=== PATIENT | female | born 1960 | race Caucasian/White ===

== ENCOUNTER 2022-08-12 07:00 | Inpatient (IN) | payer OTHER ==
[~2022-08-12] VITALS: Ht 162.6 cm; Wt 90.7 kg
[2022-08-12] VITALS (13 sets, daily range): BP systolic 119–162; BP diastolic 68–103
[2022-08-12] MEDS ORDERED: methylPREDNISolone SOD SUCC 125 MG/2ML VIAL ONE (07:05)
[2022-08-12] MEDS ORDERED: IPRATROPIUM NEB FS 0.5 MG/2.5 ML AMPUL.NEB ONE (07:12)
[2022-08-12] MEDS ORDERED: ALBUTEROL FS 2.5 MG/3 ML VIAL.NEB ONE (07:12)
[2022-08-12 07:27] LABS: BASOPHILS % (AUTO) 0.2 % (0.0-2.0); EOSINOPHILS % (AUTO) 0.3 % (0.0-6.0); HEMATOCRIT 43 % (33-45); HEMOGLOBIN 13.8 g/dL (11.5-14.8); LYMPHOCYTES # (AUTO) 4.4 K/uL (0.8-4.8); LYMPHOCYTES % (AUTO) 18.6 % (20.0-44.0); MEAN CORPUSCULAR HGB CONC 32 g/dl (31.0-36.0); MEAN CORPUSCULAR VOLUME 80 fL (82-100); MONOCYTES # (AUTO) 2.1 K/uL (0.1-1.30); NEUTROPHILS % (AUTO) 71.9 % (43.0-81.0); PLATELET COUNT (AUTO) 413 K/uL (150-450); RED BLOOD CELL COUNT(AUTO) 5.41 MIL/uL (4.0-5.2); WHITE BLOOD COUNT (AUTO) 23.6 K/uL (4.3-11.0)
[2022-08-12] MEDS ORDERED: IPRATROPIUM NEB FS 0.5 MG/2.5 ML AMPUL.NEB NEB ONE (07:30)
[2022-08-12] MEDS ORDERED: methylPREDNISolone SOD SUCC 125 MG/2ML VIAL IV ONE (07:30)
[2022-08-12] MEDS ORDERED: ALBUTEROL FS 2.5 MG/3 ML VIAL.NEB CONTNEB ONE (07:30)
[2022-08-12] MEDS ORDERED: NITROGLYCERIN 0.4 MG/TAB BOTTLE ONE (07:33)
[2022-08-12] MEDS ORDERED: CEFTRIAXONE 1GM BAG (ER ONLY) 50 ML IV ONE (07:42)
[2022-08-12 07:56] LABS: ALANINE AMINOTRANSFERASE 40 U/L (12-78); ALBUMIN 3.9 g/dL (3.4-5.0); ALKALINE PHOSPHATASE 212 U/L (46-116); ASPARTATE AMINOTRANSFERASE 25 U/L (15-37); BILIRUBIN,DIRECT 0.1 mg/dL (0.0-0.2); BILIRUBIN,TOTAL 0.4 mg/dL (0.2-1.0); CALCIUM, SERUM 9.7 mg/dL (8.5-10.1); CARBON DIOXIDE 27 mmol/L (21-32); CHLORIDE 101 mmol/L (98-107); CREATININE 0.9 mg/dL (0.6-1.3); GLUCOSE 193 mg/dL (74-106); POTASSIUM 3.8 mmol/L (3.5-5.1); SODIUM SERUM 139 mmol/L (136-145); TOTAL PROTEIN, SERUM 8.2 g/dL (6.4-8.2); UREA NITROGEN, BLOOD 20 mg/dL (7-18)
[2022-08-12] MEDS ORDERED: CEFTRIAXONE 1 G in IV D5W 50 ML IV ONE (08:00)
[2022-08-12] MEDS ORDERED: NITROGLYCERIN 0.4 MG/TAB BOTTLE SL ONE (08:00)
[2022-08-12] MEDS ORDERED: FUROSEMIDE 40 MG/4 ML VIAL ONE (08:18)
[2022-08-12] MEDS ORDERED: FUROSEMIDE 40 MG/4 ML VIAL IV ONE (08:30)
[2022-08-12] MEDS ORDERED: ACETAMINOPHEN 325 MG TABLET PO PRN (10:00)
[2022-08-12] MEDS ORDERED: CEFTRIAXONE 1 G in IV D5W 50 ML IV SCH (10:00)
[2022-08-12] MEDS ORDERED: ONDANSETRON HCL/PF 4 MG/2 ML VIAL IVP PRN (10:00)
[2022-08-12] MEDS: PANTOPRAZOLE 40 MG VIAL IV SCH (10:54)
[2022-08-12] MEDS: ENOXAPARIN SODIUM 40 MG/0.4 ML DISP.SYRIN SQ SCH (10:56)
[2022-08-12] MEDS: AZITHROMYCIN 500 MG in IV D5W 250 ML IV SCH (11:15)
[2022-08-12] MEDS ORDERED: dexaMETHasone SOD PHOSPHATE 10 MG/ML VIAL IV SCH (12:00)
[2022-08-12] MEDS ORDERED: ASPI-1420 PO (12:10)
[2022-08-12] MEDS ORDERED: LIDO1ADH82 TP (12:10)
[2022-08-12] MEDS ORDERED: HYDR2TAB7 PO (12:10)
[2022-08-12] MEDS ORDERED: BUME1TAB8 PO (12:10)
[2022-08-12] MEDS ORDERED: TIZA2CAP PO (12:10)
[2022-08-12] MEDS ORDERED: ATOR40TA PO (12:10)
[2022-08-12] MEDS ORDERED: TIOT18CA3 IH (12:10)
[2022-08-12] MEDS ORDERED: PREG-57 PO (12:10)
[2022-08-12] MEDS ORDERED: AMLO-213 PO (12:10)
[2022-08-12] MEDS ORDERED: MIRT7.5T10 PO (12:10)
[2022-08-12] MEDS ORDERED: MULT-447 PO (12:10)
[2022-08-12] MEDS ORDERED: VENL37.510 PO (12:10)
[2022-08-12] MEDS ORDERED: ASCO500T22 PO (12:10)
[2022-08-12] MEDS ORDERED: LACT1CAP69 PO (12:10)
[2022-08-12] MEDS ORDERED: ACET-2605 PO (12:10)
[2022-08-12] MEDS ORDERED: ESCI5TAB PO (12:10)
[2022-08-12] MEDS ORDERED: METO25TA20 PO (12:10)
[2022-08-12] MEDS ORDERED: SENN-261 PO (12:10)
[2022-08-12] MEDS ORDERED: ALBU2.5V38 IH (12:10)
[2022-08-12] MEDS: IPRATROPIUM NEB FS 0.5 MG/2.5 ML AMPUL.NEB NEB SCH ×4 (13:04→23:15)
[2022-08-12] MEDS: ALBUTEROL HALF STRENGTH 1.25 MG/3 ML VIAL.NEB NEB SCH ×4 (13:04→23:15)
[2022-08-12] MEDS ORDERED: methylPREDNISolone SOD SUCC 125 MG/2ML VIAL IV SCH (14:30)
[2022-08-12 15:26] LABS: BILIRUBIN,URINE NEGATIVE (NEGATIVE); COLOR,URINE YELLOW (YELLOW); LEUKOCYTE ESTERASE ,URINE NEGATIVE (NEGATIVE); NITRITE, URINE NEGATIVE (NEGATIVE); PH,URINE 5.5 (5.0-8.0); PROTEIN,URINE NEGATIVE (NEGATIVE); UGLUCOSE NEGATIVE (NEGATIVE); UROBILINOGEN,URINE 0.2 EU/dL (0.2)
[2022-08-12] MEDS: PREGABALIN 25 MG CAPSULE PO SCH (19:02)
[2022-08-12] MEDS: TIZANIDINE HCL 4 MG TABLET PO SCH (19:02)
[2022-08-12] MEDS: CELECOXIB 100 MG CAPSULE PO SCH (19:02)
[2022-08-12] MEDS: dexaMETHasone SOD PHOSPHATE 10 MG/ML VIAL IV SCH (20:33)
[2022-08-13] VITALS (25 sets, daily range): BP systolic 96–188; BP diastolic 57–126
[2022-08-13] MEDS: hydrALAZINE HCL IV 20 MG VIAL IV PRN (01:48)
[2022-08-13] MEDS: IPRATROPIUM NEB FS 0.5 MG/2.5 ML AMPUL.NEB NEB SCH ×6 (03:31→23:59)
[2022-08-13] MEDS: ALBUTEROL HALF STRENGTH 1.25 MG/3 ML VIAL.NEB NEB SCH ×6 (03:31→23:58)
[2022-08-13] MEDS: dexaMETHasone SOD PHOSPHATE 10 MG/ML VIAL IV SCH ×3 (03:50→20:08)
[2022-08-13 05:03] LABS: BASOPHILS % (AUTO) 0.1 % (0.0-2.0); HEMATOCRIT 40 % (33-45); HEMOGLOBIN 12.8 g/dL (11.5-14.8); LYMPHOCYTES # (AUTO) 0.6 K/uL (0.8-4.8); MEAN CORPUSCULAR HGB CONC 32 g/dl (31.0-36.0); MEAN CORPUSCULAR VOLUME 80 fL (82-100); MONOCYTES # (AUTO) 0.8 K/uL (0.1-1.30); NEUTROPHILS # (AUTO) 19.5 K/uL (1.8-8.9); NEUTROPHILS % (AUTO) 92.9 % (43.0-81.0); PLATELET COUNT (AUTO) 357 K/uL (150-450); RED BLOOD CELL COUNT(AUTO) 5.01 MIL/uL (4.0-5.2)
[2022-08-13 05:07] LABS: CALCIUM, SERUM 9.6 mg/dL (8.5-10.1); CREATININE 0.8 mg/dL (0.6-1.3); MAGNESIUM 2.3 mg/dL (1.8-2.4); PHOSPHORUS 4.6 mg/dL (2.5-4.9); POTASSIUM 3.6 mmol/L (3.5-5.1)
[2022-08-13 05:44] LABS: LYMPHOCYTES % (MANUAL) 2 % (16-48); MONOCYTES % (MANUAL) 2 % (0-11.0); NEUTROPHILS % (MANUAL) 96 (42-76)
[2022-08-13] MEDS: PREGABALIN 25 MG CAPSULE PO SCH ×2 (08:21→16:02)
[2022-08-13] MEDS: TIZANIDINE HCL 4 MG TABLET PO SCH ×2 (08:21→16:02)
[2022-08-13] MEDS: CELECOXIB 100 MG CAPSULE PO SCH (08:21)
[2022-08-13] MEDS: FUROSEMIDE 20 MG/2 ML VIAL IV SCH ×2 (08:21→16:02)
[2022-08-13] MEDS: PANTOPRAZOLE 40 MG VIAL IV SCH (08:22)
[2022-08-13] MEDS: CEFTRIAXONE 1 G in IV D5W 50 ML IV SCH (08:25)
[2022-08-13] MEDS: AZITHROMYCIN 500 MG in IV D5W 250 ML IV SCH (11:08)
[2022-08-13] MEDS: ENOXAPARIN SODIUM 40 MG/0.4 ML DISP.SYRIN SQ SCH (11:10)
[2022-08-13 12:13] LABS: ABG BASE EXCESS 1.2 mmol/L; ABG PH 7.432 (7.350-7.450); ABG PO2 66.6 mmHg (75.0-100.0); COHb 0.4 % (0.5-1.5); MetHb 0.2 % (0.0-1.5); O2Hb 92.9 % (94.0-97.0); SITE, ABG Right Radial; VENT MODE, BG 4LNC
[2022-08-14] VITALS (20 sets, daily range): BP systolic 112–178; BP diastolic 70–115
[2022-08-14] MEDS: ALBUTEROL HALF STRENGTH 1.25 MG/3 ML VIAL.NEB NEB SCH ×6 (02:41→23:47)
[2022-08-14] MEDS: IPRATROPIUM NEB FS 0.5 MG/2.5 ML AMPUL.NEB NEB SCH ×6 (02:41→23:47)
[2022-08-14] MEDS: dexaMETHasone SOD PHOSPHATE 10 MG/ML VIAL IV SCH ×3 (03:17→20:06)
[2022-08-14 05:16] LABS: BASOPHILS % (AUTO) 0.1 % (0.0-2.0); EOSINOPHILS % (AUTO) 0.1 % (0.0-6.0); HEMATOCRIT 41 % (33-45); HEMOGLOBIN 13.3 g/dL (11.5-14.8); LYMPHOCYTES # (AUTO) 0.9 K/uL (0.8-4.8); LYMPHOCYTES % (AUTO) 5.1 % (20.0-44.0); MEAN CORPUSCULAR HGB CONC 32 g/dl (31.0-36.0); MEAN CORPUSCULAR VOLUME 80 fL (82-100); MONOCYTES # (AUTO) 0.5 K/uL (0.1-1.30); MONOCYTES % (AUTO) 3.2 % (2.0-12.0); NEUTROPHILS # (AUTO) 15.6 K/uL (1.8-8.9); NEUTROPHILS % (AUTO) 91.5 % (43.0-81.0); PLATELET COUNT (AUTO) 323 K/uL (150-450); RED BLOOD CELL COUNT(AUTO) 5.11 MIL/uL (4.0-5.2); WHITE BLOOD COUNT (AUTO) 17.1 K/uL (4.3-11.0)
[2022-08-14 05:38] LABS: CALCIUM, SERUM 9.6 mg/dL (8.5-10.1); CREATININE 0.8 mg/dL (0.6-1.3); MAGNESIUM 2.6 mg/dL (1.8-2.4); PHOSPHORUS 4.5 mg/dL (2.5-4.9); POTASSIUM 3.7 mmol/L (3.5-5.1)
[2022-08-14] MEDS: CEFTRIAXONE 1 G in IV D5W 50 ML IV SCH (07:35)
[2022-08-14] MEDS: TIZANIDINE HCL 4 MG TABLET PO SCH ×2 (08:43→16:07)
[2022-08-14] MEDS: PANTOPRAZOLE 40 MG/PACK PACK PO SCH (08:43)
[2022-08-14] MEDS: CELECOXIB 100 MG CAPSULE PO SCH (08:43)
[2022-08-14] MEDS: LORAZEPAM INJ 2 MG/ML VIAL IV PRN ×2 (08:44→18:25)
[2022-08-14] MEDS: PREGABALIN 25 MG CAPSULE PO SCH ×2 (08:44→16:07)
[2022-08-14] MEDS: FUROSEMIDE 20 MG/2 ML VIAL IV SCH ×2 (08:44→16:07)
[2022-08-14] MEDS: AZITHROMYCIN 500 MG in IV D5W 250 ML IV SCH (09:10)
[2022-08-14] MEDS: ENOXAPARIN SODIUM 40 MG/0.4 ML DISP.SYRIN SQ SCH (09:11)
[2022-08-14] MEDS: hydrALAZINE HCL IV 20 MG VIAL IV PRN (10:54)
[2022-08-15] VITALS: BP 131/71
[2022-08-15] MEDS: LORAZEPAM INJ 2 MG/ML VIAL IV PRN ×2 (00:27→22:00)
[2022-08-15] MEDS: dexaMETHasone SOD PHOSPHATE 10 MG/ML VIAL IV SCH ×3 (03:27→20:48)
[2022-08-15] MEDS: ALBUTEROL HALF STRENGTH 1.25 MG/3 ML VIAL.NEB NEB SCH ×5 (03:34→20:33)
[2022-08-15] MEDS: IPRATROPIUM NEB FS 0.5 MG/2.5 ML AMPUL.NEB NEB SCH ×5 (03:34→20:33)
[2022-08-15 04:00] VITALS: BP 132/83
[2022-08-15 08:00] VITALS: BP 145/87
[2022-08-15] MEDS: TIZANIDINE HCL 4 MG TABLET PO SCH ×2 (08:34→16:13)
[2022-08-15] MEDS: PREGABALIN 25 MG CAPSULE PO SCH ×2 (08:34→16:13)
[2022-08-15] MEDS: PANTOPRAZOLE 40 MG/PACK PACK PO SCH (08:34)
[2022-08-15] MEDS: CELECOXIB 100 MG CAPSULE PO SCH (08:34)
[2022-08-15] MEDS: FUROSEMIDE 20 MG/2 ML VIAL IV SCH (08:49)
[2022-08-15] MEDS: CEFTRIAXONE 1 G in IV D5W 50 ML IV SCH (08:51)
[2022-08-15] MEDS: ENOXAPARIN SODIUM 40 MG/0.4 ML DISP.SYRIN SQ SCH (10:10)
[2022-08-15] MEDS: AZITHROMYCIN 500 MG in IV D5W 250 ML IV SCH (10:11)
[2022-08-15 10:46] LABS: POTASSIUM 3.7 mmol/L (3.5-5.1)
[2022-08-15 11:27] LABS: HEMATOCRIT 42 % (33-45); HEMOGLOBIN 13.5 g/dL (11.5-14.8); LYMPHOCYTES # (AUTO) 1.1 K/uL (0.8-4.8); LYMPHOCYTES % (AUTO) 6.7 % (20.0-44.0); MEAN CORPUSCULAR HGB CONC 32 g/dl (31.0-36.0); MEAN CORPUSCULAR VOLUME 80 fL (82-100); MONOCYTES # (AUTO) 1.3 K/uL (0.1-1.30); MONOCYTES % (AUTO) 7.8 % (2.0-12.0); NEUTROPHILS # (AUTO) 14.6 K/uL (1.8-8.9); NEUTROPHILS % (AUTO) 85.5 % (43.0-81.0); PLATELET COUNT (AUTO) 385 K/uL (150-450); RED BLOOD CELL COUNT(AUTO) 5.24 MIL/uL (4.0-5.2); WHITE BLOOD COUNT (AUTO) 17.1 K/uL (4.3-11.0)
[2022-08-15 12:00] VITALS: BP 127/105
[2022-08-15 16:00] VITALS: BP 137/84
[2022-08-15 20:00] VITALS: BP 165/94
[2022-08-15] MEDS: hydrALAZINE HCL IV 20 MG VIAL IV PRN (21:00)
[2022-08-16] MEDS: ALBUTEROL HALF STRENGTH 1.25 MG/3 ML VIAL.NEB NEB SCH ×6 (00:06→20:18)
[2022-08-16] MEDS: IPRATROPIUM NEB FS 0.5 MG/2.5 ML AMPUL.NEB NEB SCH ×6 (00:06→20:18)
[2022-08-16 04:00] VITALS: BP 166/92
[2022-08-16] MEDS: LORAZEPAM INJ 2 MG/ML VIAL IV PRN (04:01)
[2022-08-16] MEDS: dexaMETHasone SOD PHOSPHATE 10 MG/ML VIAL IV SCH (04:01)
[2022-08-16 06:58] LABS: BASOPHILS % (AUTO) 0.1 % (0.0-2.0); HEMATOCRIT 43 % (33-45); HEMOGLOBIN 14.1 g/dL (11.5-14.8); LYMPHOCYTES % (AUTO) 8.8 % (20.0-44.0); MEAN CORPUSCULAR HGB CONC 33 g/dl (31.0-36.0); MEAN CORPUSCULAR VOLUME 80 fL (82-100); MONOCYTES # (AUTO) 0.5 K/uL (0.1-1.30); MONOCYTES % (AUTO) 4.2 % (2.0-12.0); NEUTROPHILS # (AUTO) 10.1 K/uL (1.8-8.9); NEUTROPHILS % (AUTO) 86.9 % (43.0-81.0); PLATELET COUNT (AUTO) 385 K/uL (150-450); RED BLOOD CELL COUNT(AUTO) 5.44 MIL/uL (4.0-5.2); WHITE BLOOD COUNT (AUTO) 11.6 K/uL (4.3-11.0)
[2022-08-16] MEDS: CEFTRIAXONE 1 G in IV D5W 50 ML IV SCH (07:51)
[2022-08-16 08:00] VITALS: BP 165/89
[2022-08-16] MEDS: PANTOPRAZOLE 40 MG/PACK PACK PO SCH (08:04)
[2022-08-16] MEDS: TIZANIDINE HCL 4 MG TABLET PO SCH ×2 (08:05→16:28)
[2022-08-16] MEDS: PREGABALIN 25 MG CAPSULE PO SCH ×2 (08:05→16:30)
[2022-08-16] MEDS: CELECOXIB 100 MG CAPSULE PO SCH (08:05)
[2022-08-16 08:20] LABS: CALCIUM, SERUM 9.4 mg/dL (8.5-10.1); CREATININE 0.7 mg/dL (0.6-1.3); POTASSIUM 4.4 mmol/L (3.5-5.1)
[2022-08-16] MEDS: AZITHROMYCIN 500 MG in IV D5W 250 ML IV SCH (09:21)
[2022-08-16] MEDS: ENOXAPARIN SODIUM 40 MG/0.4 ML DISP.SYRIN SQ SCH (10:12)
[2022-08-16] MEDS ORDERED: dexaMETHasone SOD PHOSPHATE 10 MG/ML VIAL IV ONE (10:30)
[2022-08-16] MEDS: LORAZEPAM 1 MG TABLET PO PRN ×2 (11:38→20:23)
[2022-08-16] MEDS: LOSARTAN POTASSIUM 25 MG TABLET PO SCH (14:27)
[2022-08-16 16:00] VITALS: BP 151/87
[2022-08-17] VITALS: BP 131/67
[2022-08-17] MEDS: IPRATROPIUM NEB FS 0.5 MG/2.5 ML AMPUL.NEB NEB SCH ×4 (00:13→11:25)
[2022-08-17] MEDS: ALBUTEROL HALF STRENGTH 1.25 MG/3 ML VIAL.NEB NEB SCH ×4 (00:13→11:25)
[2022-08-17 06:56] LABS: BASOPHILS % (AUTO) 0.2 % (0.0-2.0); EOSINOPHILS % (AUTO) 0.3 % (0.0-6.0); HEMATOCRIT 40 % (33-45); HEMOGLOBIN 12.8 g/dL (11.5-14.8); LYMPHOCYTES # (AUTO) 2.2 K/uL (0.8-4.8); LYMPHOCYTES % (AUTO) 14.6 % (20.0-44.0); MEAN CORPUSCULAR HGB CONC 32 g/dl (31.0-36.0); MEAN CORPUSCULAR VOLUME 82 fL (82-100); MONOCYTES # (AUTO) 1.2 K/uL (0.1-1.30); MONOCYTES % (AUTO) 7.7 % (2.0-12.0); NEUTROPHILS # (AUTO) 11.6 K/uL (1.8-8.9); NEUTROPHILS % (AUTO) 77.2 % (43.0-81.0); PLATELET COUNT (AUTO) 345 K/uL (150-450); RED BLOOD CELL COUNT(AUTO) 4.91 MIL/uL (4.0-5.2)
[2022-08-17 07:01] LABS: CALCIUM, SERUM 8.7 mg/dL (8.5-10.1); CREATININE 0.7 mg/dL (0.6-1.3)
[2022-08-17] MEDS: CEFTRIAXONE 1 G in IV D5W 50 ML IV SCH (07:48)
[2022-08-17 08:00] VITALS: BP 140/77
[2022-08-17] MEDS: PREGABALIN 25 MG CAPSULE PO SCH (08:10)
[2022-08-17] MEDS: TIZANIDINE HCL 4 MG TABLET PO SCH (08:10)
[2022-08-17] MEDS: CELECOXIB 100 MG CAPSULE PO SCH (08:10)
[2022-08-17 08:11] VITALS: BP 126/64
[2022-08-17] MEDS: PANTOPRAZOLE 40 MG/PACK PACK PO SCH (08:11)
[2022-08-17] MEDS: LOSARTAN POTASSIUM 25 MG TABLET PO SCH (08:11)
[2022-08-17] MEDS: LORAZEPAM 1 MG TABLET PO PRN (08:22)
[2022-08-17] MEDS ORDERED: dexaMETHasone SOD PHOSPHATE 10 MG/ML VIAL IV SCH (09:00)
[2022-08-17] MEDS: ENOXAPARIN SODIUM 40 MG/0.4 ML DISP.SYRIN SQ SCH (09:30)
[2022-08-17] MEDS ORDERED: PRED20TA PO (11:43)
== END 2022-08-17 13:14 | disposition home or self-care (01) | DRG 280 ==
LOC: ER 07:06 → ICU 09:49 → TELE1 08-14 18:34 → TELE-TD 08-14 19:36 → TELE1 08-15 15:14 → MEDSG1 08-15 18:19
PROVIDERS: ADMIT Nurse Practitioner Acute Care
PROC: 5A09457 Assistance with Respiratory Ventilation, 24-96 Consecutive Hours, Continuous Positive Airway Pressure (ICD-10-PCS; principal; 2022-08-12)
PROC: 05H533Z Insertion of Infusion Device into Right Subclavian Vein, Percutaneous Approach (ICD-10-PCS; 2022-08-12)
PROC: B546ZZA Ultrasonography of Right Subclavian Vein, Guidance (ICD-10-PCS; 2022-08-12)
DX: I11.0 Hypertensive heart disease with heart failure (principal); I21.A1 Myocardial infarction type 2; I50.43 Acute on chronic combined systolic (congestive) and diastolic (congestive) heart failure; J96.01 Acute respiratory failure with hypoxia; J44.1 Chronic obstructive pulmonary disease with (acute) exacerbation; D68.69 Other thrombophilia; E87.20 Acidosis, unspecified; J45.901 Unspecified asthma with (acute) exacerbation; I42.2 Other hypertrophic cardiomyopathy; I16.0 Hypertensive urgency; F32.A Depression, unspecified; F41.9 Anxiety disorder, unspecified; I48.91 Unspecified atrial fibrillation; Z87.891 Personal history of nicotine dependence; Z95.2 Presence of prosthetic heart valve; Z20.822 Contact with and (suspected) exposure to COVID-19; E66.01 Morbid (severe) obesity due to excess calories; Z68.34 Body mass index [BMI] 34.0-34.9, adult
CPT/HCPCS: 36410; 36415; 36600; 71045-TC; 80048-TC; 80061-TC; 80076-TC; 82803-TC; 83605-TC; 83735-TC; 83880; 84100-TC; 84484-TC; 85025-TC; 87040-TC; 87081-TC; 93307-TC; 94660; 94799-TC; A4223; C9113; C9803; G0378; J0360; J0456; J0696; J1100; J1650; J1940; J2060; J2930; J7050; J7060